=== PATIENT | male | born 1965 | race Caucasian/White ===

== ENCOUNTER 2019-05-16 19:04 | Emergency (ER) | payer OTHER ==
[~2019-05-16] VITALS: Ht 180.3 cm; Wt 93.0 kg
== END 2019-05-16 21:48 | disposition home or self-care (01) ==
LOC: ER 19:04
DX: S30.21XA Contusion of penis, initial encounter (principal); X50.0XXA Overexertion from strenuous movement or load, initial encounter; Y93.89 Activity, other specified; Y92.89 Other specified places as the place of occurrence of the external cause; Y99.8 Other external cause status

== ENCOUNTER 2019-06-12 14:45 | Emergency (ER) | payer OTHER ==
[~2019-06-12] VITALS: Ht 172.7 cm; Wt 95.3 kg
[2019-06-12] MEDS ORDERED: ZESTRIL2.5 MG (15:12)
[2019-06-12] MEDS ORDERED: AMPYRA10 MG (15:13)
[2019-06-12] MEDS ORDERED: CELEBREX200MG (15:14)
[2019-06-12] MEDS ORDERED: NORTRIPTYLINE H10 MG (15:14)
[2019-06-12] MEDS ORDERED: TRUVADA 200 MG1 EACH (15:15)
[2019-06-12] MEDS ORDERED: ACETAMINOPHEN500 M1 (15:15)
[2019-06-12] MEDS ORDERED: ULTRAM50 MG (15:16)
[2019-06-12] MEDS ORDERED: DEPLIN (15:16)
[2019-06-12] MEDS ORDERED: VITAMIN D310 MCG/1 M (15:17)
[2019-06-12] MEDS ORDERED: OCREVUS300 MG/10 (15:18)
[2019-06-12] MEDS ORDERED: LIORESAL I500 MCG/1 (15:18)
[2019-06-12] MEDS ORDERED: HORIZANT300 MG (15:19)
[2019-06-12] MEDS ORDERED: EFFEXOR XR150 MG (15:19)
== END 2019-06-12 16:41 | disposition home or self-care (01) ==
LOC: ER 14:45
DX: M54.5 Low back pain (principal)